=== PATIENT | male | born 1980 | race Caucasian/White ===

== ENCOUNTER 2020-04-22 14:44 | Emergency (ER) | payer MEDICAID ==
[~2020-04-22] VITALS: Ht 175.3 cm; Wt 81.6 kg
[2020-04-22 19:45] VITALS: BP 133/86
== END 2020-04-22 19:47 | disposition home or self-care (01) ==
LOC: ER 14:44
DX: U07.1 COVID-19 (principal); J06.9 Acute upper respiratory infection, unspecified
CPT/HCPCS: 36415; 71045; 87426